=== PATIENT | female | born 1965 | race Caucasian/White ===

== ENCOUNTER 2019-07-16 05:42 | Emergency (ER) | payer SELFPAY ==
--- NOTE | 2019-07-16 06:27 | ERPHSYRPT ---
- History of Present Illness Time Seen by Provider: 07/16/19 06:10 Source: patient Exam Limitations: no limitations Patient Subjective Stated Complaint: pt to ER with complaints of cough. pt states she had this same cough 3 weeks ago and was given antibiotics and steriods and finished them, got better then got worse again yesterday. Triage Nursing Assessment: pt to ER with complaints of productive cough. pt had cough 3 weeks ago, got antibiotics and steriods and started feeling better. pt states it got worse again yesterday. Physician History: 54 y/o white female presents with approx one month h/o cough. pt was seen at [facility] 3 weeks ago. given rx for amoxicillin and received a shot of steroids. sx seemed to improve. 3 days ago coughing spell recurred has headache from coughing so much. no n/v/d. no cp, no abd pain. no fever. Timing/Duration: day(s) (3), worse Cough Quality/Degree: moderate, dry cough Possible Cause: occasional episodes Associated Symptoms: cough, headache (with cough), No fever, No chest pain/ soreness, No shortness of breath Allergies/Adverse Reactions: No Known Drug Allergies Allergy (Verified 07/16/19 05:54) Hx Tetanus, Diphtheria Vaccination/Date Given: Yes Hx Influenza Vaccination/Date Given: No Hx Pneumococcal Vaccination/Date Given: No Immunizations Up to Date: Yes - Review of Systems Constitutional: No Symptoms Eyes: No Symptoms Ears, Nose, & Throat: No Symptoms Respiratory: Cough Cardiac: No Symptoms, No Chest Pain, No Palpitations Abdominal/Gastrointestinal: No Symptoms, No Abdominal Pain, No Nausea, No Vomiting, No Diarrhea Genitourinary Symptoms: No Symptoms Musculoskeletal: No Symptoms Skin: No Symptoms Neurological: No Symptoms Psychological: No Symptoms Endocrine: No Symptoms Hematologic/Lymphatic: No Symptoms Immunological/Allergic: No Symptoms All Other Systems: Reviewed and Negative - Past Medical History Pertinent Past Medical History: No Neurological History: No Pertinent History ENT History: No Pertinent History Cardiac History: No Pertinent History Respiratory History: No Pertinent History Endocrine Medical History: No Pertinent History Musculoskeletal History: No Pertinent History GI Medical History: No Pertinent History History: No Pertinent History Psycho-Social History: No Pertinent History Female Reproductive Disorders: No Pertinent History - Past Surgical History Past Surgical History: Yes Neuro Surgical History: No Pertinent History Cardiac: No Pertinent History Respiratory: No Pertinent History Gastrointestinal: Cholecystectomy Musculoskeletal: No Pertinent History Female Surgical History: Tubal Ligation - Social History Smoking Status: Never smoker Exposure to second hand smoke: No Drug Use: none Patient Lives Alone: No - Female History Hx Now: No - Nursing Vital Signs Nursing Vital Signs: Initial Vital Signs Temperature 99 F 07/16/19 05:47 Pulse Rate 95 H 07/16/19 05:47 Respiratory Rate 18 07/16/19 05:47 Blood Pressure 188/91 07/16/19 05:47 O2 Sat by Pulse Oximetry 97 07/16/19 05:47 - Physical Exam General Appearance: no apparent distress, alert, anxiety Eye Exam: PERRL/EOMI, eyes nml inspection Ears, Nose, Throat Exam: normal ENT inspection, moist mucous membranes Neck Exam: normal inspection, non-tender, supple, full range of motion Respiratory Exam: airway intact, wheezing (mild wheezing left side), No chest tenderness, No respiratory distress Cardiovascular Exam: regular rate/rhythm, normal heart sounds, normal peripheral pulses Gastrointestinal/Abdomen Exam: soft, normal bowel sounds, No tenderness, No guarding, No rebound Pelvic Exam: not done Rectal Exam: not done Back Exam: normal inspection, normal range of motion, No CVA tenderness, No vertebral tenderness Extremity Exam: normal inspection, normal range of motion, pelvis stable Neurologic Exam: alert, oriented x 3, cooperative, 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 avoid exposure to any type of smoke. follow up with primary doctor for further management Prescriptions: Albuterol 8 gm Mdi Hfa [Ventolin Hfa MDI] 8 gm IH Q4H #1 [email or web address] Azithromycin 250 mg [Zithromax 250 MG TABLET] 250 mg PO ZPACK #6 tablet Hydrocodone Bit/Acetaminophen [Hydrocodone-Acetaminophen Soln] 10 ml PO Q6H # 120 ml Prednisone 10 mg [Deltasone 10 mg] 10 mg PO TID #12 tablet
[2019-07-16] MEDS ORDERED: HYDROCODONE-ACETAMIN 2.5-108/5 ML SOLUTION PO STA (06:30)
[2019-07-16] MEDS ORDERED: Rocephin 1000 MG INJ IM ONE (06:31)
[2019-07-16] MEDS ORDERED: solu-MEDROL 125 MG IM ONE (06:31)
[2019-07-16] MEDS ORDERED: solu-MEDROL 125 MG ONE (06:35)
[2019-07-16] MEDS ORDERED: Rocephin 1000 MG INJ ONE (06:35)
[2019-07-16] MEDS ORDERED: HYDROCODONE-ACETAMIN 2.5-108/5 ML SOLUTION ONE (06:35)
[2019-07-16] MEDS ORDERED: XYLOCAINE 1% HCL 20 ML MDV IJ ONE (06:35)
[2019-07-16 06:50] VITALS: BP 138/91; PULSE 85; O2SAT 97
== END 2019-07-16 07:01 | disposition home or self-care (01) ==
LOC: ED 05:42
DX: J40 Bronchitis, not specified as acute or chronic (principal); R05 Cough; R51 Headache
CPT/HCPCS: 96372; 99284; J0696; J2930; A9270-GY